=== PATIENT | female | born 1990 ===

== ENCOUNTER 2023-03-04 14:16 | Outpatient (CLI) | payer OTHER | END 2023-03-04 15:00 | disposition home or self-care (01) | LOC: PRENATAL 14:16 | PROVIDERS: ATTEND Obstetrics & Gynecology Maternal & Fetal Medicine | DX: O36.80X0 Pregnancy with inconclusive fetal viability, not applicable or unspecified (principal); Z36.82 Encounter for antenatal screening for nuchal translucency; Z36.9 Encounter for antenatal screening, unspecified; Z3A.11 11 weeks gestation of pregnancy ==

== ENCOUNTER 2023-04-30 08:09 | Outpatient (CLI) | payer OTHER | END 2023-04-30 08:10 | disposition home or self-care (01) | LOC: PRENATAL 08:09 | PROVIDERS: ATTEND Obstetrics & Gynecology Maternal & Fetal Medicine | DX: O35.9XX0 Maternal care for (suspected) fetal abnormality and damage, unspecified, not applicable or unspecified (principal); O35.3XX0 Maternal care for (suspected) damage to fetus from viral disease in mother, not applicable or unspecified; O44.00 Complete placenta previa NOS or without hemorrhage, unspecified trimester; Z3A.20 20 weeks gestation of pregnancy ==

== ENCOUNTER 2023-06-24 14:54 | Outpatient (CLI) | payer OTHER ==
[~2023-06-24] VITALS: Ht 157.5 cm; Wt 76.7 kg
[2023-06-24] MEDS ORDERED: PRENATAL TABLE1 EAC4 (15:00)
[2023-06-24] MEDS ORDERED: RINGERS SOLUTION,LACTATED 1,000 ML IV SCH (15:30)
[2023-06-24 16:31] LABS: PH,URINE 7.5 (5.0-8.0); URINE APPEARANCE Clear; URINE BILIRRUBIN Negative (NEGATIVE); URINE BLOOD Negative; URINE COLOR Yellow; URINE GLUCOSE Negative (NEGATIVE); URINE LEUKOCYTE Moderate; URINE NITRATE Negative; URINE PROTEIN Negative (NEGATIVE); URINE UROBILINOGEN 0.2 E.U./dl
[2023-06-24 16:32] LABS: URINE BACTERIA 234.3 uL (0.0-1933); URINE EPITHELIAL CELLS 6.1 uL (0.0-38.8)
[2023-06-24 16:38] LABS: URINE RBC 1.1 uL (0.0-20.8)
[2023-06-24] MEDS ORDERED: CEFTRIAXONE SODIUM 2,000 MG VIAL IV ONE (19:30)
[2023-06-25] MEDS ORDERED: MACROBID 100 M100 MG PO (09:43)
== END 2023-06-25 10:03 | disposition home or self-care (01) ==
LOC: OBS/DEL 14:54
PROVIDERS: ATTEND Student in an Organized Health Care Education/Training Program
DX: N93.9 Abnormal uterine and vaginal bleeding, unspecified (principal); Z3A.27 27 weeks gestation of pregnancy; O26.849 Uterine size-date discrepancy, unspecified trimester; O36.8199 Decreased fetal movements, unspecified trimester, other fetus; O26.859 Spotting complicating pregnancy, unspecified trimester

== ENCOUNTER 2023-09-13 21:12 | Inpatient (IN) | payer OTHER ==
[~2023-09-13] VITALS: Ht 157.5 cm; Wt 75.7 kg
[~2023-09-13 21:12] MED LIST: MACROBID 100 M100 MG PO; PRENATAL TABLE1 EAC4
[2023-09-13] MEDS ORDERED: RINGERS SOLUTION,LACTATED 1,000 ML IV SCH (21:30)
[2023-09-13] MEDS ORDERED: OXYTOCIN 500 ML IV SCH (21:45)
[2023-09-13 21:50] LABS: PH,URINE 6.5 (5.0-8.0); URINE APPEARANCE Clear; URINE BILIRRUBIN Negative (NEGATIVE); URINE BLOOD Moderate; URINE COLOR Yellow; URINE GLUCOSE Negative (NEGATIVE); URINE LEUKOCYTE Large; URINE NITRATE Negative; URINE PROTEIN Negative (NEGATIVE); URINE UROBILINOGEN 0.2 E.U./dl
[2023-09-13 21:51] LABS: HEMOGLOBIN 11.5 g/dL (12.0-15.00); MEAN CELL VOLUME 90.8 fL (80.00-100.00); MEAN CORPUSCULAR HEMOGLOBIN 31.7 pg (27.00-32.0); MEAN CORPUSCULAR HGB CONC 34.9 g/dl (32.0-36.0); PLATELET COUNT 255 K/uL (150-450); RED BLOOD COUNT 3.64 M/uL (4.00-6.00); RED CELL DISTRIBUTION WIDTH 13.6 % (11.5-14.5)
[2023-09-13 21:54] LABS: URINE BACTERIA 1401.1 uL (0.0-1933); URINE EPITHELIAL CELLS 38.9 uL (0.0-38.8); URINE WBC 66.6 uL (0.0-23.2)
[2023-09-13 22:05] LABS: INR 0.99; PARTIAL THROMBOPLASTIN TIME 28.2 SECONDS (22.0-34.0); PROTHROMBIN TIME 10.4 SECONDS (9.0-11.5)
[2023-09-13 22:09] LABS: ALBUMIN 2.9 gm/dL (3.4-5.0); BILIRUBIN TOTAL 0.29 mg/dL (0.3-1.2); CALCIUM 8.9 mg/dL (8.5-10.1); CREATININE SERUM 0.63 mg/dL (0.55-1.02); GFR 108.17; GLOBULINA 4.3 G/DL (2.4-3.5); POTASSIUM 3.65 mEq/L (3.5-5.1); TOTAL PROTEIN 7.2 gm/dL (6.4-8.2)
[2023-09-13] MEDS ORDERED: MEPERIDINE HCL/PF 50 MG/ML VIAL IV ONE (22:15)
[2023-09-13] MEDS ORDERED: PROMETHAZINE HCL 25 MG/ML AMPUL IV ONE (22:15)
[2023-09-14] MEDS ORDERED: BENZOCAINE/MENTHOL 90 ML BOTTLE TOP PRN (00:30)
[2023-09-14] MEDS ORDERED: ACETAMINOPHEN 500 MG GEL..CAP PO PRN (00:30)
[2023-09-14] MEDS ORDERED: OXYTOCIN 1,000 ML IV SCH (00:30)
[2023-09-14] MEDS ORDERED: ERYTHROMYCIN BASE 1 GM TUBE OP ONE (01:15)
[2023-09-14] MEDS ORDERED: LIDOCAINE HCL 1% 10ML VIAL IJ ONE (01:15)
[2023-09-14] MEDS ORDERED: CHLORHEXIDINE GLUCONATE 120 ML BOTTLE TOP ONE (01:15)
[2023-09-14] MEDS ORDERED: SIMETHICONE 125 MG CAPSULE PO SCH (09:00)
[2023-09-14] MEDS ORDERED: HYDROCORTISONE 2.5% 30 GM TUBE RECTAL SCH (17:00)
== END 2023-09-15 15:47 | disposition home or self-care (01) | DRG 807 ==
LOC: OB/GYN 21:12 → LDR 21:12 → OB/GYN 09-14 01:24
PROVIDERS: ADMIT Obstetrics & Gynecology; ATTEND Obstetrics & Gynecology
PROC: 10E0XZZ Delivery of Products of Conception, External Approach (ICD-10-PCS; principal; 2023-09-13)
PROC: 0KQM0ZZ Repair Perineum Muscle, Open Approach (ICD-10-PCS; 2023-09-13)
PROC: 0UQMXZZ Repair Vulva, External Approach (ICD-10-PCS; 2023-09-13)
PROC: 4A1HXCZ Monitoring of Products of Conception, Cardiac Rate, External Approach (ICD-10-PCS; 2023-09-13)
DX: O70.1 Second degree perineal laceration during delivery (principal); Z37.0 Single live birth; Z3A.39 39 weeks gestation of pregnancy; Z20.822 Contact with and (suspected) exposure to COVID-19